=== PATIENT | female | born 1965 | race Caucasian/White ===

== ENCOUNTER 2016-12-14 11:10 | Emergency (ER) | payer MEDICAID, OTHER ==
[~2016-12-14] VITALS: Ht 144.8 cm; Wt 110.4 kg
[2016-12-14] MEDS ORDERED: SODIUM CHLORIDE 0.9% 1,000 ML IV ONE (11:48)
[2016-12-14] MEDS ORDERED: SODIUM CHLORIDE FLUSH 10ML SYR IVF ONE (12:00)
[2016-12-14] MEDS ORDERED: FAMOTIDINE 20 MG/2 ML IVP ONE (12:00)
[2016-12-14] MEDS ORDERED: SODIUM CHLORIDE 0.9%, 250ML IVBOLUS ONE (12:00)
[2016-12-14] MEDS ORDERED: PLEASE ENTER ALLERGIES MC SCH ×2 (12:00)
[2016-12-14] MEDS ORDERED: ONDANSETRON 2MG/ML, 2ML IVPush ONE (12:00)
[2016-12-14] MEDS ORDERED: MORPHINE SULFATE 4 MG/ML, 1ML IVPush PRN (12:00)
[2016-12-14] MEDS ORDERED: MORPHINE SULFATE 4 MG/ML, 1ML ONE (12:15)
[2016-12-14] MEDS ORDERED: ONDANSETRON 2MG/ML, 2ML ONE (12:15)
[2016-12-14] MEDS ORDERED: FAMOTIDINE 20 MG/2 ML ONE (12:15)
[2016-12-14 12:30] LABS: ASPARTATE AMINO TRANSFERASE 18 U/L (15-37); BLOOD UREA NITROGEN 12 mg/dL (7-18)
[2016-12-14 12:36] LABS: IS PT STATUS REG ER OR PRE ER? YES
[2016-12-14] MEDS ORDERED: PROMETHAZINE 25 MG/ML, 1ML ONE (12:59)
[2016-12-14] MEDS ORDERED: PROMETHAZINE 25 MG/ML, 1ML IM ONE (13:00)
[2016-12-14] MEDS ORDERED: MAALOX/HYOSCYAMINE/LIDOCAINE 45 ML BOTTLE ONE (14:13)
[2016-12-14] MEDS ORDERED: MAALOX/HYOSCYAMINE/LIDOCAINE 45 ML BOTTLE PO ONE (14:30)
[2016-12-14] MEDS ORDERED: METOCLOPRAMIDE 5 MG/ML, 2ML ONE (14:58)
[2016-12-14] MEDS ORDERED: METOCLOPRAMIDE 5 MG/ML, 2ML IVPush ONE (15:00)
[2016-12-14] MEDS ORDERED: hydrALAzine 20 MG/ML, 1ML ONE (15:48)
[2016-12-14] MEDS ORDERED: OMNIPAQUE 350 MG/ML, 150 ML BOTTLE ONE (15:56)
[2016-12-14] MEDS ORDERED: hydrALAzine 20 MG/ML, 1ML IV ONE (16:00)
[2016-12-14 16:20] VITALS: BP 205/82
== END 2016-12-14 17:52 | disposition home or self-care (01) ==
LOC: ED 13:00
DX: R10.13 Epigastric pain (principal); E86.0 Dehydration; I10 Essential (primary) hypertension; Z90.49 Acquired absence of other specified parts of digestive tract; Z85.3 Personal history of malignant neoplasm of breast
CPT/HCPCS: 36415; 74022; 74177; 80053; 83690; 83880; 84484; 85025; 93005; 96361; 96372; 96374; 96375; 99285; J0360; J2405; J2550; J2765; J7030; Q9967; S0028

== ENCOUNTER 2020-10-15 08:52 | Emergency (ER) | payer MEDICAID ==
[~2020-10-15] VITALS: Ht 152.4 cm; Wt 103.3 kg
[2020-10-15] MEDS ORDERED: ONDANSETRON 2MG/ML, 2ML ONE (09:29)
[2020-10-15] MEDS ORDERED: SODIUM CHLORIDE 0.9% 1,000ML IVBOLUS ONE (09:30)
[2020-10-15] MEDS ORDERED: ONDANSETRON 2MG/ML, 2ML IVPush ONE (09:30)
--- NOTE | 2020-10-15 09:54 | NUR ---
Pt came in for [place]. Changed into gown independently, actively dry heaving, unhooked herself from all monitors, EKG done in triage, made aware of need for UA, IV placed, IVF running, NADN, VSS.
[2020-10-15 09:59] LABS: BASOPHILS % (AUTO) 0 % (0-1); EOSINOPHILS % (AUTO) 0 % (1-7); LYMPHOCYTES % (AUTO) 10 % (22-44); MEAN CORPUSCULAR HGB CONC 34.1 g/dL (32.4-35.8); MEAN PLATELET VOLUME 9.8 fL (7.4-10.4); MONOCYTES % (AUTO) 4 % (2-9); NEUTROPHILS % (AUTO) 86 % (42-75); PLATELET COUNT 224 x10^3/uL (130-400); RED BLOOD COUNT 5.35 x10^6/uL (3.82-5.3); RED CELL DISTRIBUTION WIDTH 13.5 % (9.6-15.2)
[2020-10-15 10:01] LABS: MD NO
[2020-10-15 10:11] LABS: ALANINE AMINOTRANSFERASE 27 U/L (12-78); ALBUMIN 4.4 g/dL (3.4-5.0); ANION GAP 11 mmol/L (5-15); CALCIUM 9.5 mg/dL (8.5-10.1); CHLORIDE 104 mmol/L (98-107); CREATININE 0.85 mg/dL (0.55-1.02)
[2020-10-15 10:14] LABS: ALKALINE PHOSPHATASE 120 U/L (45-117); BILIRUBIN,TOTAL 0.9 mg/dL (0.2-1.0); TOTAL PROTEIN 8.6 g/dL (6.4-8.2)
--- NOTE | 2020-10-15 10:17 | NUR ---
BREAK RN: PT UP TO RESTROOM AND BACK W/O INCIDENT. UNABLE TO PROVIDE URINE FOR SAMPLE. PT PLACED BACK ON MONITOR. PT HTN, PRIMARY RN NOTIFIED. Addendum: 10/15/20 at 1017 by LASHA CARLOSN. CALL LIGHT WITHIN REACH.
[2020-10-15] MEDS ORDERED: PROMETHAZINE 25 MG/ML, 1ML ONE (10:28)
[2020-10-15] MEDS ORDERED: MORPHINE SULFATE 4 MG/ML, 1ML IVPush PRN (10:30)
[2020-10-15] MEDS ORDERED: PROMETHAZINE 25 MG/ML, 1ML IM ONE (10:30)
[2020-10-15] MEDS ORDERED: MORPHINE SULFATE 4 MG/ML, 1ML ONE (10:34)
--- NOTE | 2020-10-15 10:56 | NUR ---
Pt back from imaging, no other requests at this time
[2020-10-15 11:01] LABS: TROPONIN I < 0.015 ng/mL (0.000-0.045)
[2020-10-15] MEDS ORDERED: ENALAPRILAT 1.25 MG/ML, 1ML ONE (11:44)
[2020-10-15] MEDS ORDERED: ENALAPRILAT 1.25 MG/ML, 2ML IV ONE (12:00)
[2020-10-15 12:03] LABS: MICROSCOPIC AUTO
--- NOTE | 2020-10-15 12:34 | NUR ---
BREAK RN: PT TO CT.
--- NOTE | 2020-10-15 12:51 | NUR ---
BREAK RN: PT RETURNED FROM CT, UNABLE TO COMPLETE D/T IV. PT STILLL HTN, OTHER VS WNL. PT BEDRAIL UPX2. CALL LIGHT WITHIN REACH.
--- NOTE | 2020-10-15 14:07 | NUR ---
Pt back from CT
[2020-10-15] MEDS ORDERED: OMNIPAQUE 350 MG/ML, 100ML BOTTLE ONE (14:13)
[2020-10-15 14:53] VITALS: BP 220/93
== END 2020-10-15 15:01 | disposition home or self-care (01) ==
LOC: ED 12:19
DX: R10.84 Generalized abdominal pain (principal); I10 Essential (primary) hypertension; A05.9 Bacterial foodborne intoxication, unspecified; R07.89 Other chest pain; R11.2 Nausea with vomiting, unspecified; R94.31 Abnormal electrocardiogram [ECG] [EKG]; Z90.49 Acquired absence of other specified parts of digestive tract; Z88.0 Allergy status to penicillin
CPT/HCPCS: 36415; 74021; 74177; 80053; 81001; 83690; 84484; 85025; 93005; 96361; 96372; 96374; 96375; 99285; J2270; J2405; J2550; J7030; Q9967